=== PATIENT | female | born 1975 | race Caucasian/White ===

== ENCOUNTER 2016-12-17 11:12 | Emergency (ER) | payer BC, OTHER ==
[2016-12-17] MEDS ORDERED: Sodium Chloride 0.9% 10 ML Syringe FLUSH PRN (11:42)
[2016-12-17] MEDS ORDERED: Alum Hydrox/Mag Hydrox/Simeth 30 ML, Lidocaine 2% 15 ML PO ONE ×2 (11:43)
[2016-12-17] MEDS ORDERED: Pantoprazole 40 MG Vial IVPUSH ONE (11:44)
[2016-12-17] MEDS ORDERED: Sodium Chloride 0.9% 1,000 ML IV SCH (11:45)
--- NOTE | 2016-12-17 12:48 | EDM.PDOC ---
ED HPI GENERAL MEDICAL PROBLEM - General Chief Complaint: Neuro Symptoms/Deficits Stated Complaint: DIZZY,VERY SHAKEY Time Seen by Provider: 12/17/16 11:21 Source of Information: Reports: Patient History Limitations: Reports: No Limitations - History of Present Illness INITIAL COMMENTS - FREE TEXT/NARRATIVE: The patient was kneeling at [employer] when she developed a warm feeling in the pit of her stomach that makes her feel weird. She then became nauseated but she did not vomit. She got dizzy and lightheaded. She has a tight feeling her the epigastric region and in her muscles. This has happened before a few times. She has been seen and nothing has been found out. It was thought she had esophageal spasms from GERD. She has GERD and she is being treated. She does have some reflux today. She denies fever, chills, cough, dysuria or diarrhea. She had some coffee and a peanut butter sandwich. That is not unusual for her. She also had pad tae noodles last night and a glass of wine. She has no shortness of breath. Onset: Sudden Duration: Minutes: Location: Reports: Chest, Abdomen Quality: Reports: Other (Tightness) Severity: Moderate Improves with: Reports: None Worsens with: Reports: None Context: Reports: Other (Kneeling in [employer]ism) Associated Symptoms: Reports: Chest Pain, Nausea/Vomiting. Denies: Cough, Fever /Chills, Shortness of Breath - Related Data Allergies Allergy/AdvReac Type Severity Reaction Status Date / Time No Known Allergies Allergy Verified 12/17/16 11:28 Home Meds: Home Meds Loratadine [Claritin] 10 mg PO DAILY 12/17/16 [History] Omeprazole Magnesium [Prilosec Otc] 20 mg PO BID 12/17/16 [History] Past Medical History - Past Health History Medical/Surgical History: Denies Medical/Surgical History Respiratory History: Reports: Asthma Gastrointestinal History: Reports: GERD - Past Surgical History Female Surgical History: Reports: Oophorectomy Other Female Surgeries/Procedures: left Musculoskeletal Surgical History: Reports: Arthroscopic Knee Social & Family History - Family History Family Medical History: Noncontributory - Tobacco Use Smoking Status *Q: Never Smoker Second Hand Smoke Exposure: No - Caffeine Use Caffeine Use: Reports: Coffee - Alcohol Use Days Per Week of Alcohol Use: 2 Number of Drinks Per Day: 2 Total Drinks Per Week: 4 - Recreational Drug Use Recreational Drug Use: No ED ROS GENERAL - Review of Systems Review Of Systems: See Below Constitutional: Reports: No Symptoms HEENT: Reports: No Symptoms Respiratory: Reports: No Symptoms Cardiovascular: Reports: Chest Pain Endocrine: Reports: No Symptoms GI/Abdominal: Reports: Abdominal Pain, Nausea. Denies: Diarrhea, Vomiting : Reports: No Symptoms Musculoskeletal: Reports: Other (Tightness in her arms and legs) ED EXAM, NEURO - Physical Exam Exam: See Below Exam Limited By: No Limitations General Appearance: Alert, No Apparent Distress Ears: Normal External Exam Nose: Normal Inspection Head Exam: Atraumatic, Normocephalic Neck: Normal Inspection Respiratory/Chest: No Respiratory Distress, Lungs Clear, Normal Breath Sounds Cardiovascular: Regular Rate, Rhythm, No Edema, No Murmur GI/Abdominal: Soft, Non-Tender, No Organomegaly, No Mass, Other (When I pushed in her epigastric area she felt some reflux) Neurological: Alert, No Motor/Sensory Deficits, Oriented x 3 EKG INTERPRETATION EKG Date: 12/17/16 Time: 11:51 Rhythm: NSR Rate (Beats/Min): 73 [place]: Normal P-Wave: Present QRS: Normal ST-T: Normal QT: Normal Course - Vital Signs Last Recorded V/S: Last Vital Signs Temp 97.9 F 12/17/16 11:21 Pulse 90 12/17/16 11:21 Resp 18 12/17/16 11:21 BP 137/81 12/17/16 11:21 Pulse Ox 100 12/17/16 11:21 Orthostatic Blood Pressure [ 139/86 Standing] Orthostatic Blood Pressure [ 137/75 Sitting] Orthostatic Blood Pressure [ 137/81 Supine] - Orders/Labs/Meds Orders: Active Orders 24 hr Category Date Time Status Cardiac Monitoring [RC] . DIRECTED Care 12/17/16 11:42 Active EKG Documentation Completion [RC] STAT Care 12/17/16 11:43 Active Peripheral IV Care [RC] . DIRECTED Care 12/17/16 11:43 Active Chest 1V Frontal [CR] Stat Exams 12/17/16 12:00 Taken Sodium Chloride 0.9% [Normal Saline] 1,000 ml Med 12/17/16 11:45 Active IV ASDIRECTED Sodium Chloride 0.9% [Saline Flush] Med 12/17/16 11:42 Active 10 ml FLUSH ASDIRECTED PRN Peripheral IV Insertion Adult [OM.PC] Stat Oth 12/17/16 11:42 Ordered Medication Orders Sodium Chloride (Normal Saline) 1,000 mls @ 125 mls/hr IV ASDIRECTED VIVIANE Last Admin: 12/17/16 12:12 Dose: 125 mls/hr Sodium Chloride (Saline Flush) 10 ml FLUSH ASDIRECTED PRN PRN Reason: Keep Vein Open Last Admin: 12/17/16 12:18 Dose: 10 ml Labs: Laboratory Tests 12/17/16 12/17/16 12/17/16 Range/Units 12:00 12:00 12:00 WBC 5.04 (3.98-10.04) K/mm3 RBC 4.50 (3.98-5.22) M/mm3 Hgb 13.4 (11.2-15.7) gm/L Hct 39.6 (34.1-44.9) % MCV 88.0 (79.4-94.8) fl MCH 29.8 (25.6-32.2) pg MCHC 33.8 (32.2-35.5) g/dl RDW Std Deviation 43.7 (36.4-46.3) fL Plt Count 265 (182-369) K/mm3 MPV 10.2 (9.4-12.3) fl Neut % (Auto) 44.2 (34.0-71.1) % Lymph % (Auto) 41.1 (19.3-51.7) % [place] % (Auto) 9.9 (4.7-12.5) % Eos % (Auto) 4.6 (0.7-5.8) Baso % (Auto) 0.2 (0.1-1.2) % Neut # (Auto) 2.23 (1.56-6.13) K/mm3 Lymph # (Auto) 2.07 (1.18-3.74) K/mm3 [place] # (Auto) 0.50 H (0.24-0.36) K/mm3 Eos # (Auto) 0.23 (0.04-0.36) K/mm3 Baso # (Auto) 0.01 (0.01-0.08) K/mm3 Sodium 140 (136-145) mEq/L Potassium 3.9 (3.5-5.1) mEq/L Chloride 105 (98-107) mEq/L Carbon Dioxide 28 (21-32) mEq/L Anion Gap 10.9 (5-15) BUN 12 (7-18) mg/dL Creatinine 1.0 (0.55-1.02) mg/dL Est Cr Clr Drug Dosing 57.37 mL/min Estimated GFR (MDRD) > 60 (>60) mL/min BUN/Creatinine Ratio 12.0 L (14-18) Glucose 104 (74-106) mg/dL Calcium 9.1 (8.5-10.1) mg/dL Total Bilirubin 0.4 (0.2-1.0) mg/dL AST 16 (15-37) U/L ALT 25 (14-59) U/L Alkaline Phosphatase 45 L (46-116) U/L Troponin I < 0.017 (0.00-0.056) ng/mL Total Protein 7.0 (6.4-8.2) g/dl Albumin 3.8 (3.4-5.0) g/dl Globulin 3.2 gm/dL Albumin/Globulin Ratio 1.2 (1-2) Lipase 175 (73-393) U/L HCG, Qual Negative (NEGATIVE) Meds: Medications Generic Name Dose Route Start Last Admin Trade Name Freq PRN Reason Stop Dose Admin Sodium Chloride 1,000 mls @ 125 mls/hr 12/17/16 11:45 12/17/16 12:12 Normal Saline IV 125 mls/hr ASDIRECTED VIVIANE Administration Sodium Chloride 10 ml 12/17/16 11:42 12/17/16 12:18 Saline Flush FLUSH 10 ml ASDIRECTED PRN Administration Keep Vein Open Discontinued Medications Generic Name Dose Route Start Last Admin Trade Name Freq PRN Reason Stop Dose Admin Al Hydroxide/Mg Hydroxide 30 0 ml 12/17/16 11:43 12/17/16 12:18 ml/ Lidocaine HCl 15 ml PO 12/17/16 11:44 45 ml ONETIME ONE Administration Pantoprazole Sodium 40 mg 12/17/16 11:44 12/17/16 12:13 Protonix Iv IVPUSH 12/17/16 11:45 40 mg ONETIME ONE Administration - Re-Assessments/Exams Free Text/Narrative Re-Assessment/Exam: 12/17/16 12:51 I ordered an IV, EKG, CXR, labs, GI cocktail and protonix 40mg IV. 12/17/16 13:23 Her EKG shows a NSR with no acute changes. Her CBC and CMP look good. Her troponin is negative. She feels a little better. She also has a dizziness component to this. I want her to see Dr Wisdom at our clinic for an evaluation. I also want her to follow up with Dr Chavez and see about an EGD. Departure - Departure Time of Disposition: 13:30 Disposition: Home, Self-Care 01 Condition: Good Clinical Impression: Dizziness, Lightheaded GERD (gastroesophageal reflux disease) Qualifiers: Esophagitis presence: esophagitis presence not specified Qualified Code(s): K21.9 - Gastro-esophageal reflux disease without esophagitis - Discharge Information Referrals: Khloe Cisse MD [Primary Care Provider] - 1 Week Forms: ED Department Discharge Additional Instructions: Follow up with Dr Grullon within 1 week. Follow up with Dr Wisdom for the dizziness. His number is [phone]. Please return if you are worse. - My Orders Last 24 Hours: My Active Orders 12/17/16 11:42 Cardiac Monitoring [RC] . DIRECTED Sodium Chloride 0.9% [Saline Flush] 10 ml FLUSH ASDIRECTED PRN Peripheral IV Insertion Adult [OM.PC] Stat 12/17/16 11:43 EKG Documentation Completion [RC] STAT Peripheral IV Care [RC] . DIRECTED 12/17/16 11:45 Sodium Chloride 0.9% [Normal Saline] 1,000 ml IV ASDIRECTED 12/17/16 12:00 Chest 1V Frontal [CR] Stat - Assessment/Plan Last 24 Hours: My Active Orders 12/17/16 11:42 Cardiac Monitoring [RC] . DIRECTED Sodium Chloride 0.9% [Saline Flush] 10 ml FLUSH ASDIRECTED PRN Peripheral IV Insertion Adult [OM.PC] Stat 12/17/16 11:43 EKG Documentation Completion [RC] STAT Peripheral IV Care [RC] . DIRECTED 12/17/16 11:45 Sodium Chloride 0.9% [Normal Saline] 1,000 ml IV ASDIRECTED 12/17/16 12:00 Chest 1V Frontal [CR] Stat
[2016-12-17 13:50] VITALS: BP 112/76
--- NOTE | 2016-12-18 10:19 | CR ---
Chest: Frontal view of the chest was obtained. Comparison: Previous chest x-ray of 08/03/13. Heart size and mediastinum are within normal limits. Lungs are clear. Bony structures are within normal limits for the patient's age. Impression: 1. Nothing acute is identified on frontal chest x-ray. Diagnostic code #1
== END 2016-12-17 13:44 | disposition home or self-care (01) ==
LOC: JD.ED 11:12
DX: K21.9 Gastro-esophageal reflux disease without esophagitis (principal); R42 Dizziness and giddiness; J45.909 Unspecified asthma, uncomplicated; Z90.710 Acquired absence of both cervix and uterus
CPT/HCPCS: 36415; 71010; 80053; 83690; 84484; 84703; 85025; 93005; 96361; 96374; 99284; A9270; C9113; J7040; J7050